=== PATIENT | male | born 1990 | race Caucasian/White ===

== ENCOUNTER → 2017-11-17 | Outpatient (CLI) | payer OTHER ==
--- NOTE | 2017-11-17 14:11 | DIAGNOSTIC IMAGING REPORT ---
ABDOMEN LIMITED (US) CLINICAL HISTORY: 27 years-old Male presenting with L72.9 Skin cystSkin cyst vs Lipoma under his sternum. E X0D E UL. TECHNIQUE: Real-time grayscale ultrasound imaging of the subxiphoid region was performed for a focused evaluation at the site of clinical concern. COMPARISON: Plain radiographs from earlier today. FINDINGS: At the site of clinical concern along the left paramedian aspect of the xiphoid process, no sonographic abnormality is evident. No fluid collection. Normal subcutaneous fat and subjacent chest wall musculature. IMPRESSION: 1. No sonographic abnormality at the site of clinical concern. Electronically signed by: Mendez Chen M.D. 11/17/2017 2:10 PM Dictated Date/Time: 11/17/2017 2:09 PM
== END | disposition home or self-care (01) ==
LOC: C.ULTRBC 13:46
PROVIDERS: ATTEND Nurse Practitioner Adult Health
DX: L72.9 Follicular cyst of the skin and subcutaneous tissue, unspecified (principal)

== ENCOUNTER → 2017-11-17 | Outpatient (CLI) | payer OTHER ==
--- NOTE | 2017-11-17 13:46 | DIAGNOSTIC IMAGING REPORT ---
STERNUM MIN 2 VIEWS CLINICAL HISTORY: L72.9 Skin cyst at the xiphoid [id number] COMPARISON STUDY: None. FINDINGS: The sternum is intact. No bony abnormality. No fracture identified. No significant abnormality within the adjacent soft tissues. IMPRESSION: No significant abnormality within the sternum. Of note, if there is clinical concern for soft tissue abnormality then consider ultrasound for follow-up. Electronically signed by: Philip Calabrese M.D. 11/17/2017 1:45 PM Dictated Date/Time: 11/17/2017 1:44 PM
== END | disposition home or self-care (01) ==
LOC: C.RADBC 13:05
PROVIDERS: ATTEND Nurse Practitioner Adult Health
DX: L72.9 Follicular cyst of the skin and subcutaneous tissue, unspecified (principal)